=== PATIENT | female | born 1980 | race African-American/Black ===

== ENCOUNTER → 2022-06-03 10:18 | Outpatient (CLI) | payer OTHER, SELFPAY ==
--- NOTE | ~2022-06-03 | MM_ITS ---
EXAMINATION: MM screening [facility] w [facility] HISTORY: Screening mammogram TECHNIQUE: Craniocaudal and mediolateral oblique 3-D tomosynthesis images were obtained and synthetic 2-D images were generated. CAD analysis was submitted and interpreted. COMPARISON: No prior mammogram is available for comparison at this institution. BREAST PARENCHYMAL COMPOSITION: There are scattered areas of fibroglandular density. FINDINGS: Bilateral mammographic asymmetries. Bilateral diagnostic mammography is recommended, with ultrasound if required. IMPRESSION: 1. Bilateral mammographic asymmetries 2. Bilateral diagnostic mammography is recommended, with ultrasound if required BI-RADS Category 0: Incomplete: Needs additional imaging evaluation. Reviewed, dictated and finalized at location A.
== END ==
PROVIDERS: PCP Nurse Practitioner Family; Visit Provider Obstetrics & Gynecology
DX: Z12.31 Encounter for screening mammogram for malignant neoplasm of breast (principal); R92.8 Other abnormal and inconclusive findings on diagnostic imaging of breast
CPT/HCPCS: 77063; 77067

== ENCOUNTER → 2022-07-24 08:59 | Outpatient (CLI) | payer OTHER, SELFPAY ==
--- NOTE | ~2022-07-24 | MM_ITS ---
EXAMINATION: MM diagnostic [facility] BI w [facility] HISTORY: Bilateral breast asymmetries on screening mammogram TECHNIQUE: Additional 3-D tomosynthesis images of the breasts were performed and synthetic 2-D images were generated. CAD analysis was submitted and interpreted. COMPARISON: 06/03/2022, 08/19/2020, 07/26/2020 BREAST PARENCHYMAL COMPOSITION: There are scattered areas of fibroglandular density. FINDINGS: There is a return to baseline fibroglandular appearance with spot compression of the breast s in the areas questioned on screening mammogram. IMPRESSION: 1. No mammographic evidence of malignancy. 2. Recommend routine screening mammography in one year. BI-RADS Category 1: Negative Reviewed, dictated and finalized at location A.
== END ==
PROVIDERS: PCP Nurse Practitioner Family; Visit Provider Obstetrics & Gynecology
DX: R92.8 Other abnormal and inconclusive findings on diagnostic imaging of breast (principal)
CPT/HCPCS: 77062; 77066; G0279

== ENCOUNTER 2023-02-23 14:37 | Emergency (ER) | payer OTHER, SELFPAY ==
[2023-02-23 14:53] VITALS: BP 132/91; PULSE 105; RESP 16; TEMP 36.3; O2SAT 100
--- NOTE | 2023-02-23 14:58 | ED.ARRPALP ---
HPI - Arrhythmia/Palpitations General Chief Complaint: Arrhythmia/Palpitations Stated Complaint: heart palpations Time Seen by Provider: 02/23/23 14:58 Source: patient Mode of arrival: ambulatory Limitations: no limitations History of Present Illness HPI narrative: 43-year-old female with a history of hypertension presented for complaint of ?feeling skipped heartbeat? intermittently since yesterday morning. States she was able to sleep without difficulty, the palpitations returned this morning. Patient states she is here to get an EKG, stating her PCP advised such because she could not be seen today. Patient denies any associated symptoms of dizziness, chest pain, shortness breath, nausea, vomiting, swelling, fevers or chills. Patient had venous Doppler last week due to knee injury, states it was normal. Denies recent increase in caffeine or use of cough/cold medications. States she exercised for 30 minutes on the treadmill this morning without difficulty or incident. States she did not feel palpitation during exercise, but did feel it at rest. Related Data Home Medications Medication Instructions Recorded Confirmed triamterene 37.5 1 tablet PO DAILY 02/23/23 02/23/23 mg-hydrochlorothiazide 25 mg tablet Allergies Allergy/AdvReac Type Severity Reaction Status Date / Time aspirin Allergy Severe Anaphylaxis Verified 02/23/23 15:03 bismuth subsalicylate Allergy Severe Anaphylaxis Verified 02/23/23 15:04 [From Pepto-Bismol] Review of Systems Review of Systems: CONSTITUTIONAL: Denies body aches, fever, chills, or sweats. EYES: Denies visual changes, redness, or discharge. ENT: Denies rhinorrhea, congestion, sore throat, or otalgia. CARDIOVASCULAR: Reports palpitations, Denies chest pain, or edema. RESPIRATORY: Denies cough, sob, wheezing. GASTROINTESTINAL: Denies abdominal pain, nausea, vomiting, or diarrhea. SKIN: Denies rash, itching, or wounds. MUSCULOSKELETAL: Denies back pain, joint pain, or myalgia. NEUROLOGIC: Denies headache, numbness, tingling, or weakness. All systems reviewed & are unremarkable except as noted in HPI and below PMFSH Past Medical History Medical History (Updated 02/23/23 @ 15:18 by Marcy Wiggins, DAVID) Ankle fracture, right Hypertension Comments At time of signature, I have reviewed and agree with nursing past medical, surgical, social and family history unless otherwise noted. Please see nursing chart for further information. There is no relevant family history pertinent to the presenting complaint Exam Narrative: GENERAL: Well-appearing, in no acute distress. EYES: EOMI. No redness or drainage. Conjunctivae normal. ENT: Mucous membranes pink and moist. No rhinorrhea. NECK: Normal AROM. Supple. CHEST: No respiratory distress. Lungs clear to all sommer HEART: Tachycardic and regular. No murmur appreciated. ABDOMEN: Soft, nontender, nondistended, normal active bowel sounds. EXTREMITIES: Normal range of motion. No edema. SKIN: Warm, dry, no rash. Capillary refill normal. Normal skin turgor. NEURO: Alert and oriented x3. Gait steady. PSYCH: Normal affect. Course Course Emergency Course: Patient is aware of diagnosis, understands and agrees to treatment plan. Anticipatory guidance given. Patient agrees to follow-up as directed and is aware of reasons to seek care at the emergency department. Portions of this record may have been created with voice recognition software Level of Care: Express Care Visit MDM - Arrhythmia/Palpitations MDM Narrative Medical decision making narrative: Results of the EKG reviewed with patient. She appeared reassured after reviewing the EKG results, HR came down. 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 Advised supportive measures and signs/symptoms to go to the ER. Provided projection engineer information, she plans to f/u and wear a holter. Pt is appropriate for outpt treatment and f/u. Di
--- NOTE | 2023-02-23 15:02 | ECG_ITS ---
Measurements Intervals Holly Rate: 112 P: 54 ME: 124 QRS: 51 QRSD: 84 T: 6 QT: 332 QTc: 454 Interpretive Statements SINUS TACHYCARDIA POSSIBLE LEFT ATRIAL ENLARGEMENT BORDERLINE ST-T WAVE ABNORMALITY- INFERIOR LEADS ABNORMAL ECG NO PREVIOUS ECG AVAILABLE FOR COMPARISON Electronically Signed On 02-23-2023 17:33:17 CDT by Zack Vicente D.O.
== END 2023-02-23 15:11 | disposition home or self-care (01) ==
PROVIDERS: Emergency Provider Nurse Practitioner Family; PCP Nurse Practitioner Family
DX: R00.2 Palpitations (principal); R94.31 Abnormal electrocardiogram [ECG] [EKG]; I10 Essential (primary) hypertension
CPT/HCPCS: 93005; 99203; G0463

== ENCOUNTER 2024-06-05 13:43 | Outpatient (CLI) | payer OTHER, SELFPAY ==
--- NOTE | ~2024-06-05 | MM_ITS ---
EXAMINATION: MM screening [facility] BI w [facility] HISTORY: Screening TECHNIQUE: Craniocaudal and mediolateral oblique 3-D tomosynthesis images were obtained and synthetic 2-D images were generated. CAD analysis was submitted and interpreted. COMPARISON: Comparison to multiple prior studies sequentially, with oldest reviewed study dated 06/2020. BREAST PARENCHYMAL COMPOSITION: Not dense: There are scattered areas of fibroglandular density. FINDINGS: There is no evidence of suspicious mass, calcification, or architectural distortion to sugg est malignancy in either breast. There has been no suspicious interval change. IMPRESSION: 1. No mammographic evidence of malignancy. 2. Recommend routine screening mammography in one year. BI-RADS Category 1: Negative Reviewed, dictated and finalized at location B.
== END 2024-06-05 13:44 ==
LOC: MICIMG 13:44
PROVIDERS: PCP Nurse Practitioner; Visit Provider Obstetrics & Gynecology
DX: Z12.31 Encounter for screening mammogram for malignant neoplasm of breast (principal)
CPT/HCPCS: 77063; 77067

== ENCOUNTER 2025-01-10 12:49 | Outpatient (CLI) | payer OTHER, SELFPAY ==
--- NOTE | ~2025-01-10 | US_ITS ---
EXAMINATION: US pelvic complete w TV INDICATION: Excessive frequent menstruation Comparison:No prior studies for comparison. TECHNIQUE: Multiple transabdominal and endovaginal sonographic images of the pelvis performed. FINDINGS: The uterus measures 11.8 x 6.7 x 8.4 cm. There are multiple hypoechoic masses of the uterus , largest measuring 6 cm. The endometrial complex measures 9 mm. The right ovary measures 2.9 x 2.3 x 2.9 cm and the left ovary measures 3.1 x 1.6 x 2.4 cm. There ar e small follicles in each ovary. Normal doppler signal in both ovaries. There is no free fluid in the pelvis. There are no abnormal masses seen on either side. IMPRESSION: 1. Enlarged fibroid uterus, largest discrete fibroid measures 6 cm. Reviewed, dictated and finalized at location A.
== END 2025-01-10 12:50 | disposition home or self-care (01) ==
LOC: MICIMG 12:50
PROVIDERS: PCP Obstetrics & Gynecology; Visit Provider Obstetrics & Gynecology
DX: D25.9 Leiomyoma of uterus, unspecified (principal); N85.2 Hypertrophy of uterus
CPT/HCPCS: 76830; 76856

== ENCOUNTER 2025-06-06 10:38 | Outpatient (CLI) | payer OTHER, SELFPAY ==
--- NOTE | ~2025-06-06 | MM_ITS ---
EXAMINATION: MM screening [facility] BI w venus HISTORY: Screening mammogram TECHNIQUE: Craniocaudal and mediolateral oblique 3-D tomosynthesis images were obtained and synthetic 2-D images were generated. CAD analysis was submitted and interpreted. COMPARISON: 06/05/2024, 06/03/2022, 07/26/2020 BREAST PARENCHYMAL COMPOSITION:Not Dense. There are scattered areas of fibroglandular density. FINDINGS: No suspicious mass, calcification, or architectural distortion are identified in either breast to suggest malignancy. There has been no suspicious interval change. IMPRESSION: No mammographic evidence of malignancy. Recommend routine screening mammography in one year. BI-RADS Category 1: Negative Reviewed, dictated and finalized at location .
== END 2025-06-06 10:39 | disposition home or self-care (01) ==
LOC: MICIMG 10:39
PROVIDERS: PCP Obstetrics & Gynecology; Visit Provider Obstetrics & Gynecology
DX: Z12.31 Encounter for screening mammogram for malignant neoplasm of breast (principal)
CPT/HCPCS: 77063; 77067

== ENCOUNTER 2025-07-18 11:00 | Outpatient (CLI) | payer OTHER, SELFPAY ==
--- NOTE | ~2025-07-18 | US_ITS ---
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 Comparison: None Technique: Newell-scale and color Doppler images were obtained. Findings: Uterus: Uterus anteverted is a 2.4 x 6.7 x 8.1 cm with multiple uterine fibroids largest posterior interbody measures 3.2 x 3 cm and appears partially submucosal Endometrium 7 mm. . Right Ovary:Right ovary 2.5 x 1.6 x 2 cm, no adnexal mass, normal flow. Left Ovary: Left ovary 2.2 x 2.3 x 3.2 cm, no adnexal mass, normal flow. Free Fluid: None Impression: Uterine fibroids detailed above. Some fibroids appear partially submucosal. Contrast-enhanced MRI is suggested Reviewed, dictated and finalized at location P. Impression: Uterine fibroids detailed above. Some fibroids appear partially submucosal. Con trast-enhanced MRI is suggested
== END 2025-07-18 11:01 | disposition home or self-care (01) ==
LOC: MICIMG 11:00
PROVIDERS: PCP Obstetrics & Gynecology; Visit Provider Obstetrics & Gynecology
DX: D25.9 Leiomyoma of uterus, unspecified (principal)
CPT/HCPCS: 76830; 76856